=== PATIENT | female | born 1955 | race Two or more races ===

== ENCOUNTER 2024-08-14 11:05 | Day surgery (SDC) | payer MEDICARE, MEDICAID, SELFPAY ==
[2024-08-11 14:03] VITALS: BMI 31.2
[2024-08-14] VITALS (7 sets, daily range): BP systolic 118–151; BP diastolic 74–94; PULSE 64–68; RESP 10–18; TEMP 36.3–36.6; O2SAT 97–100; BMI 32.4
[2024-08-14] MEDS: SODIUM CHLORIDE 0.9% 500 ML 500 ML 20 ML IV (12:38)
[2024-08-14] MEDS: MIDAZOLAM INJ 1 MG/ML VIAL 2 ML (ASD USE ONLY) 2 MG IV (12:38)
[2024-08-14] MEDS: DiphenhydrAMINE INJ 50 MG/ML VIAL 25 MG IV (12:38)
[2024-08-14] MEDS: fentaNYL CIT INJ 50 mCg/ML AMP 2ML (ASD USE ONLY) IV (12:38)
== END 2024-08-14 13:17 | disposition home or self-care (01) ==
PROVIDERS: PCP Nurse Practitioner Family; Referring Provider Specialist; Visit Provider Specialist
PROC: (CPT 43239; principal; 2024-08-14 11:15)
DX: K29.71 Gastritis, unspecified, with bleeding (principal); K76.6 Portal hypertension; I85.11 Secondary esophageal varices with bleeding
CPT/HCPCS: 43235; J1200; J2250; J3010; J7040

== ENCOUNTER → 2024-09-18 | Outpatient (CLI) | payer MEDICARE, MEDICAID, SELFPAY ==
--- NOTE | 2024-09-18 09:45 | XR_ITS ---
Examination: Screening digital mammography, bilateral Computer aided detection 3-D breast Tomosynthesis, bilateral Date and time of exam: September 18, 2024 0939 hours Comparison made to mammograms dating to February 09, 2019 Indication: Screening Technique: Nonmagnified MLO, CC views of the breasts to been obtained, reconstructed from 3-D Tomosynthesis images. R2 computer aided detection program utilized for evaluation of suspicious masses and/or abnormal calcifications. 3-D Tomosynthesis images obtained. Findings: Scattered areas of fibroglandular density Benign calcifications. No interval suspicious masses Impression: BI-RADS category II: Benign Findings. Recommend 1 year follow-up mammogram.
== END | disposition home or self-care (01) ==
LOC: CDIM 09:29
PROVIDERS: Referring Provider Nurse Practitioner Family; Visit Provider Nurse Practitioner Family
DX: Z12.31 Encounter for screening mammogram for malignant neoplasm of breast (principal); R92.323 Mammographic fibroglandular density, bilateral breasts; R92.1 Mammographic calcification found on diagnostic imaging of breast
CPT/HCPCS: 77063; 77067

== ENCOUNTER → 2025-03-08 | Outpatient (CLI) | payer MEDICARE, MEDICAID, SELFPAY ==
--- NOTE | 2025-03-08 08:45 | XR_ITS ---
Examination: Abdomen sonogram, Limited Date and time of exam: March 08, 2025, 0916 hours INDICATIONS: Diagnosis cirrhosis, years Technique: Real-time de leon scale transabdominal sonographic images of the upper abdomen obtained. Findings: Multiple gallstones Normal gallbladder wall Common bile duct 0.4 cm Pancreatic head 2.2 cm Liver 13.3 cm fatty infiltration and irregular contour Normal hepatopetal portal venous flow Patent IVC IMPRESSION: Cholelithiasis, negative for cholecystitis Cirrhosis, no focal liver lesions
[2025-03-08 10:25] LABS: Basophils # (Auto) 0.0 Thou/mm3 (0.0-0.2); Basophils % (Auto) 1 % (0-2.5); Eosinophils # (Auto) 0.3 Thou/mm3 (0.0-0.5); Eosinophils % (Auto) 5 % (0-10); Hematocrit 40.7 % (36.0-46.0); Hemoglobin 14.0 g/dL (12.0-16.0); Immature Granulocytes Auto 0.02 Thou/mm3 (0.00-0.00); Lymphocytes # (Auto) 1.6 Thou/mm3 (1.0-4.8); Lymphocytes % (Auto) 30 % (10-50); Mean Corpuscular HGB Conc 34.4 g/dl (31.0-37.0); Mean Corpuscular Hemoglobin 34.9 pg (25.0-35.0); Mean Corpuscular Volume 102 fL (80-100); Monocytes # (Auto) 0.4 Thou/mm3 (0.0-0.8); Monocytes % (Auto) 7 % (0-12); Neutrophils # (Auto) 3.0 Thou/mm3 (1.8-7.7); Neutrophils % (Auto) 57 % (37-80); Nucleated Red Blood Cell # 0.00 Thou/mm3 (0.00-0.00); Nucleated Red Blood Cell % 0 /100 WBC (0); Platelet Count 221 Thou/mm3 (140-440); RDW Standard Deviation 45.6 fL (36.4-46.3); Red Blood Count 4.01 Miln/mm3 (4.00-5.20); White Blood Count 5.3 Thou/mm3 (3.6-11.0)
[2025-03-08 10:40] LABS: AFP Non-Pregnant 6.30 ng/mL (<8.10); Alanine Aminotransferase 13 U/L (10-49); Albumin, Serum 4.5 gm/dL (3.4-4.8); Albumin/Globulin Ratio 1.7 (1.2-2.2); Alkaline Phosphatase 132 U/L (46-116); Anion Gap 10 (7-16); Aspartate Amino Transferase 33 U/L (0-34); BUN/Creatinine Ratio 8 Ratio (12-20); Bilirubin,Total 0.8 mg/dL (0.3-1.2); Blood Urea Nitrogen 6 mg/dL (9-23); Calcium 9.7 mg/dL (8.3-10.6); Calcium (Corrected) 9.7 mg/dL (8.5-10.1); Carbon Dioxide 29.5 mMol/L (20.0-31.0); Chloride 102 mMol/L (98-107); Creatinine (Component) 0.8 mg/dL (0.6-1.3); Globulin 2.6 gm/dL (2.3-3.5); Glucose 103 mg/dL (74-106); Osmolality,Calculated 278 (275-295); Potassium 4.6 mMol/L (3.4-5.1); Sodium 141 mMol/L (136-145); Total Protein 7.1 gm/dL (5.7-8.2); eGFR > 60 See Note
== END | disposition home or self-care (01) ==
LOC: CDIM 09:06 → COPL 09:40
PROVIDERS: PCP Specialist; Referring Provider Specialist; Visit Provider Radiology Diagnostic Radiology
DX: K80.20 Calculus of gallbladder without cholecystitis without obstruction (principal); K74.60 Unspecified cirrhosis of liver; K76.6 Portal hypertension; R14.0 Abdominal distension (gaseous)
CPT/HCPCS: 36415; 76705; 80053; 82105; 85025

== ENCOUNTER 2025-03-29 08:56 | Outpatient (AMB) | payer MEDICARE, MEDICAID, SELFPAY ==
[2025-03-29 09:17] VITALS: BP 146/87; PULSE 86; RESP 18; TEMP 36.6; O2SAT 96; BMI 33.0
--- NOTE | 2025-03-29 09:17 | PD.ORTHCLVIS ---
Vital signs 03/29/25 09:17 Height 1.52 m Height Method Measured Weight 76.232 kg Weight Measurement Method Standing Scale BMI 33.0 BP 146/87 H Blood Pressure Source Automatic Cuff Blood Pressure Location Left Upper Arm Position Sitting Respiration 18 Pulse 86 Pulse Source Monitor Temp 97.8 F Temp Source Temporal Artery Scan Pulse Oximetry (%) 96 Oxygen Delivery Method Room Air Med/Allergies Allergies & Medications Allergies codeine Allergy (Intermediate, Verified 04/05/25 11:39) Hives Medication Reconciliation fluticasone propionate 50 mcg/actuation nasal spray,suspension 1 spray intranasal QDAY 05/20/22 [History Confirmed 04/05/25] loratadine 10 mg tablet 10 mg PO QDAY 05/20/22 [History Confirmed 04/05/25] propranolol 10 mg tablet 10 mg PO BID 05/20/22 [History Confirmed 04/05/25] spironolactone 50 mg tablet 50 mg PO QDAY 05/20/22 [History Confirmed 04/05/25] albuterol sulfate 90 mcg/actuation aerosol inhaler 2 puff inhalation Q4H PRN Shortness Of Breath Or Wheezing 06/02/22 [History Confirmed 04/05/25] pantoprazole 40 mg tablet,delayed release 40 mg PO QDAY 09/29/23 [History Confirmed 04/05/25] metformin 500 mg tablet 500 mg PO QDAY 08/14/24 [History Confirmed 04/05/25] Exam Exam Patient is in no acute distress and is cooperative with the examination today. Breathing is nonlabored. In no respiratory distress. Bilateral extremities were evaluated and demonstrates sensation intact to light touch. Palpable pedal pulses are present. No significant edema is present. Bilateral hips were examined. The patient has no pain with log roll of the hips. Internal rotation to 30 degrees and external rotation to 30 degrees is painless. Negative FADIR. The left knee was examined. The left knee is in varus alignment. Range of motion from 0-115 degrees. Knee is stable to varus and valgus as well as AP translation with <5mm. Patient has a negative McMurrays. There is no pain with patellofemoral compression and no crepitus noted. The knee is tender to palpation medially. The right knee was also examined. The right knee is in varus alignment. Range of motion from 0-120 degrees. Knee is stable to varus and valgus as well as AP translation with <5mm. Patient has a negative McMurrays. There is no pain with patellofemoral compression and no crepitus noted. The knee is tender to palpation diffusely and particularly anteriorly. The right knee demonstrates an effusion and swelling. X-rays of the right knee demonstrates a vertical nondisplaced patella fracture. This is from 01/11/2025 Assessment and Plan Problem List (1) Right patella fracture: Status: Acute Plan: Patient is a 69-year-old female with a right knee patella fracture that is nondisplaced. She is immobilized for 6 weeks. Her range of motion is okay. I would like to get x-rays to better evaluate her fracture healing as well as arthritis. She has known bilateral knee arthritis and has not had significant surgery for this (2) Bilateral primary osteoarthritis of knee: Status: Acute Advanced Care Planning Discussion Advance care planning discussed with:: patient Office Procedures GNS Level of Care Nursing/Assessment Patient Status: Initial/New Patient Nursing Assessment/Reassesment: Medication Reconciliation, Update PMH in EMR and Vital Signs Coordination of Care: Complex Care and Chronic Disease 1-5, Education Complex Pt/Fam, Consent,records obtained, informed consent, Lab and Imaging orders, Results/Orders obtained and Staff clarify orders New Patient Charge New Patient Point Assignment: 1109 New Patient Point Charge: SALES DEVELOPMENT DIRECTOR Level 3 ([id number]) MA Intake Visit Data Collection New Patient or Established: New Patient (never been to [facility]) Reason for Visit:: RIGHT PATELLA FRACTURE Seen by Clinical Staff ONLY (RN/MA): No Block Sorter Required: No PCP or OBGYN visit in last 3 months: Yes Hx Now: No Do You Feel Safe at Home: Yes Authorities Contacted: N/A Questionairres Past Medical History Past Medical History Have you ever been diagnosed with any of the following: Neurological Problems Cerebrovascular Accident (CVA): No Transient Ischemic Attacks (TIA): No Dementia: No Alzheimer's Disease: No Parkinson's Disease: No Brain Tumor: No Meningitis: No Seizures: Yes Epilepsy: No Multiple Sclerosis: No Cerebral Palsy: No Amyotrophic Lateral Sclerosis (ALS/Amna Gehrig's): No Guillain-Amelia Syndrome: No Spina Bifida: No Paralysis: No Peripheral Neuropathy: No Zuniga's Palsy: No Subdural Hematoma: No Migraine: No Head Trauma: No Spinal Cord Injury: No Traumatic Brain Injury: No Cardiology Problems Myocardial Infarction: No Cardiac Arrhythmia: No Atrial Fibrillation: No Angina: No Heart Murmur: No Coronary Artery Disease: No Atherosclerotic Heart Disease: No Peripheral Vascular Disease: No Hypercholesterolemia: No Aneurysm: No Congestive Heart Failure: No Congenital Heart Disease: No Valvular Heart Disease: No Rheumatic Fever: No Cardiomyopathy: No Edema: No Pericarditis: No Cellulitis: No Deep Vein Thrombosis: No Hypertension: Yes Hypotension: No Varicose Veins: No Respiratory Problems Chronic Obstructive Pulmonary Disease (COPD): No Asthma: No Bronchitis: No Emphysema: No Pneumonia: No Pulmonary Fibrosis: No Tuberculosis: No Pulmonary Embolism: No Pulmonary Edema: No Sleep Apnea: No CPAP Dependent: No Respiratory Aspiration: No Dyspnea: No Orthopnea: No Hx Cough: No Cough: No Wheezing: No Chest Deformities: No Smoking: No Smoking Cessation Counseling: No Smoking Exposure: No Tobacco Use: No Clubbing: No Exposure to Respiratory Irritants: No Intubation: No Stomache/Intestinal Problems Liver Cancer: No Hepatitis: No Cirrhosis: Yes Pancreatic Cancer: No Pancreatitis: No Celiac Disease: No Gall Bladder Disease: No Gastrointestinal Bleed: No Esophageal Varices: No Evans's Esophagus: No Colitis: No Ulcerative Colitis: No Diverticulitis: No Diverticulosis: No Ulcer: Yes Colorectal Cancer: No Irritable Bowel: No Crohn's Disease: No Obstructive Bowel: No Hiatal Hernia: No Hemorrhoids: No Gastroesophageal Reflux Disease: Yes Polyps: No Obesity: No Genital/Urinary Problems Chronic Kidney Disease: No Renal Disease: No Kidney Stones: No Polycystic Kidney Disease: No Neurogenic Bladder: No Inguinal Hernia: No Dialysis: No Reproductive Problems Breast Cancer: No Endometriosis: No Fibroids: No Genital Herpes: No Gonorrhea: No Pelvic Inflammatory Disease: No Polycystic Ovarian Syndrome: No Previous Pregnancies: Yes (G2) Syphilis: No Uterine Prolapse: No Musculoskeletal Problems Muscular Dystrophy: No Myasthenia Gravis: No Marfan's Syndrome: No Bone Cancer: No Arthritis: No Rheumatoid Arthritis: No Osteoporosis: No Degenerative Disk Disease: No Gout: No Scoliosis: No Carpal Tunnel Syndrome: No Fibromyalgia: No Fractures: No Degenerative Joint Disease: No Osteomyelitis: No Poliovirus: No Head,Eye,Nose,Throat Problems Cataracts: Yes Glaucoma: No Blind: No Retinal Detachment: No Macular Degeneration: No Chronic Ear Infections: No Deafness: No Eye Prosthesis: No Endocrine Problems Diabetes Mellitus Type 1: No Diabetes Mellitus Type 2: Yes Hypoglycemia: No Vane's Syndrome: No [place]'s Disease: No Hyperthyroidism: No Hypothyroidism: No Thyroid Cancer: No Parathyroid Disease: No Pituitary Disease: No Systemic Lupus Erythematosus: No Syndrome of Inappropriate Antidiuretic Hormone: No Adrenal Disease: No Graves' Disease: No Blood Problems Anemia: No Leukemia: No Hemophilia: No Thalassemia: No Sickle Cell Disease: No Clotting Problems: No Psychologic Problems Schizophrenia: No Recreational Drug Use: No Bipolar Disorder: No Depression: No Anxiety: No Behavior Problems: No Self-Mutilation: No Attention Deficit Disorder: No Attention Deficit Hyperactivity Disorder: No Depression: No Post Traumatic Stress Disorder: No Eating Disorder: No Other Problems Hospitalization: No Autoimmune Disease: No Down Syndrome: No Autism: No Developmental Delay: No Cosmetic Surgery: No Shingles: No Falls: No Blood Transfusions: No Blood Transfusion Reaction: No Anesthesia Reactions: No Organ Transplant: No Chemotherapy: No Radiation Therapy: No Hyperbaric Therapy: No MRSA: No VRSA: No Vancomycin-Resistant Enterococci: No Human Immunodeficiency Virus (HIV): No Chicken Pox: Yes Measles: Yes Mumps: No Rubella (Sinhala Measles): No Pertussis: No Klebsiella Pneumoniae Carbapenemase Producing Bacteria: No Clostridium Difficile: No Hepatitis A: No Hepatitis B: No Hepatitis C: No Communicable Disease: No Cancer: No Cervical Cancer: No Lung Cancer: No Ovarian Cancer: No Surgical History Angioplasty: No Appendectomy: No Bariatric Surgery: No Breast Surgery: No Cancer Surgery: No Carotid Endarterectomy: No Cholecystectomy: No Colectomy: No Colostomy: No Coronary Artery Bypass Graft: No Valve Replacement: No Herniorrhaphy: No Total Hip Replacement: No Total Knee Replacement: No Hysterectomy: Yes (partial hyst) Pacemaker: No Sinus Surgery: No Splenectomy: No TAHBSO-Total Abdominal Hysterectomy: No Thyroidectomy: No Ureter Stent: No Subjective Visit Visit for: new patient and knee Immunization / Flu Flu Vaccine in the Last 12 Months: No Flu Vaccine Exclusion Criteria: No Exclusion Criteria History of Present Illness Chief complaint: RIGHT PATELLA FRACTURE Date of injury / onset of symptoms: 01/11/2025 HISTORY OF PRESENT ILLNESS IMundo, have obtained verbal consent from the patient, to be recorded during this encounter which may include, but not limited to, medical history, examination, treatment plans, and relevant health information.? Patient was informed that recording will be read and reviewed by myself before inclusion in the medical chart. The patient is a 69-year-old female who presents today with pain in the right knee. She fractured her patella on 01/11/2025. The patient's most recent x-rays were done here at [place], [facility]. She is allergic to codeine. She has not had injections, has not had physical therapy, and states she cannot take anti-inflammatory medications due to cirrhosis. She reports experiencing knee pain prior to the fall, which was attributed to [id number] arthritis. Following an MRI, she was referred to physical therapy but did not seek further medical attention. An x-ray was performed in 12/2024. After the fall, she sought emergency care and was provided with a knee immobilizer, which she wore for a duration of 6 weeks. She has been without the brace for approximately 4 weeks. The pain has slightly improved but persists, particularly when she attempts to move or perform certain activities, resulting in sharp pain. Both knees exhibit swelling, which is more pronounced in the morning. Personal History Occupation: RETIRED Red flag PMH: none BMI Counceling provided: Yes Pain Pain level (0-10): 6 Pain location: inside (medial), outside (lateral), anterior and posterior Pain quality: sharp Pain timing: increases with activity Associated signs & symptoms: none Ambulatory data Ambulatory device: none Treatments Number of previous injections: 0 Improvement with previous injections: No Number of Physical Therapy sessions: 0 Improvement with PT: No Improvement with NSAIDS: no (CIRRHOSIS CANNOT TAKE NSAIDS) Review of Systems Review of Systems: All systems negative unless otherwise noted in HPI.
--- NOTE | 2025-03-29 09:21 | XR_ITS ---
EXAMINATION: Bilateral knees 2 views Right lateral knee left lateral knee 2 views Bilateral Axuni single view TECHNIQUE: Bilateral AP knees single view standing, bilateral PA knees standing single view flexion Standing right lateral knee left lateral knee 2 views Bilateral Axuni single view total 5 views Date and time: March 29, 2025, 0930 hours INDICATIONS: Bilateral knee pain after falling 3 months ago. FINDINGS: Moderate osteopenia Bilateral severe narrowing medial joint spaces Bilateral moderate osteoarthritis patellofemoral joints No fractures Bilateral small knee effusions IMPRESSION: No fractures Bilateral severe narrowing medial joint spaces
== END 2025-03-29 09:26 | disposition home or self-care (01) ==
LOC: HODSRG 08:56
PROVIDERS: PCP Nurse Practitioner Family; Referring Provider Nurse Practitioner Family; Supervising Provider Orthopaedic Surgery Adult Reconstructive Orthopaedic Surgery; Visit Provider Orthopaedic Surgery Adult Reconstructive Orthopaedic Surgery
DX: M25.561 Pain in right knee (principal); M17.0 Bilateral primary osteoarthritis of knee; I10 Essential (primary) hypertension; E11.9 Type 2 diabetes mellitus without complications; Z79.84 Long term (current) use of oral hypoglycemic drugs
CPT/HCPCS: 73564; 99203; G0463

== ENCOUNTER 2025-04-05 10:43 | Outpatient (AMB) | payer MEDICARE, MEDICAID, SELFPAY ==
--- NOTE | 2025-04-05 11:32 | PD.ORTHCLVIS ---
Vital signs 04/05/25 11:38 Height 1.52 m Height Method Measured Weight 75.551 kg Weight Measurement Method Standing Scale BMI 32.7 BP 119/81 Blood Pressure Source Automatic Cuff Blood Pressure Location Left Upper Arm Position Sitting Respiration 18 Pulse 76 Pulse Source Monitor Temp 97.2 F Temp Source Temporal Artery Scan Pulse Oximetry (%) 96 Oxygen Delivery Method Room Air Med/Allergies Allergies & Medications Allergies codeine Allergy (Intermediate, Verified 04/05/25 11:39) Hives Medication Reconciliation fluticasone propionate 50 mcg/actuation nasal spray,suspension 1 spray intranasal QDAY 05/20/22 [History Confirmed 04/05/25] loratadine 10 mg tablet 10 mg PO QDAY 05/20/22 [History Confirmed 04/05/25] propranolol 10 mg tablet 10 mg PO BID 05/20/22 [History Confirmed 04/05/25] spironolactone 50 mg tablet 50 mg PO QDAY 05/20/22 [History Confirmed 04/05/25] albuterol sulfate 90 mcg/actuation aerosol inhaler 2 puff inhalation Q4H PRN Shortness Of Breath Or Wheezing 06/02/22 [History Confirmed 04/05/25] pantoprazole 40 mg tablet,delayed release 40 mg PO QDAY 09/29/23 [History Confirmed 04/05/25] metformin 500 mg tablet 500 mg PO QDAY 08/14/24 [History Confirmed 04/05/25] Exam Exam Patient is in no acute distress and is cooperative with the examination today. Breathing is nonlabored. In no respiratory distress. Bilateral extremities were evaluated and demonstrates sensation intact to light touch. Palpable pedal pulses are present. No significant edema is present. Bilateral hips were examined. The patient has no pain with log roll of the hips. Internal rotation to 30 degrees and external rotation to 30 degrees is painless. Negative FADIR. The left knee was examined. The left knee is in varus alignment. Range of motion from 0-115 degrees. Knee is stable to varus and valgus as well as AP translation with <5mm. Patient has a negative McMurrays. There is no pain with patellofemoral compression and no crepitus noted. The knee is tender to palpation medially. The right knee was also examined. The right knee is in varus alignment. Range of motion from 0-120 degrees. Knee is stable to varus and valgus as well as AP translation with <5mm. Patient has a negative McMurrays. There is no pain with patellofemoral compression and no crepitus noted. The knee is tender to palpation diffusely and particularly anteriorly. The right knee demonstrates an effusion and swelling. X-rays of the right knee demonstrates a vertical fracture line that can still be seen. It is nondisplaced. X-rays demonstrate complete joint space loss medially with complete obliteration of the joint space and osteophytes Assessment and Plan Problem List (1) Bilateral primary osteoarthritis of knee: Status: Acute (2) Right patella fracture: Status: Acute Plan: Patient is a 69-year-old female with a medical nondisplaced patella fracture. She has an intact extensor mechanism and great range of motion. She never started formal physical therapy but has no stiffness. We discussed different treatment options for her bilateral knee pain. We discussed anti-inflammatories, injections, and physical therapy. She would like to try bilateral knee injections as she cannot take NSAIDs due to a contraindication for her liver. Recommend knee cortisone injection as patient would like to proceed with conservative treatment at this time. The risks and benefits of the procedure were reviewed with the patient and patient gave verbal consent to continue with the procedure. Procedure: performed by Dr. Giron Using sterile technique the Right knee was thoroughly prepped with alcohol, and approximately 1 cc of Depo-Medrol 80mg/mL and 4 cc of 0.2% ropivacaine was injected without resistance into the medial tibial femoral joint space. The patient tolerated the procedure. Recommend knee cortisone injection as patient would like to proceed with conservative treatment at this time. The risks and benefits of the procedure were reviewed with the patient and patient gave verbal consent to continue with the procedure. Procedure: performed by Dr. Giron Using sterile technique the leftknee was thoroughly prepped with alcohol, and approximately 1 cc of Depo-Medrol 80mg/mL and 4 cc of 0.2% ropivacaine was injected without resistance into the medial tibial femoral joint space. The patient tolerated the procedure. Advanced Care Planning Discussion Advance care planning discussed with:: patient Office Procedures GNS Level of Care Nursing/Assessment Patient Status: Established Patient Nursing Assessment/Reassesment: Medication Reconciliation, Update PMH in EMR and Vital Signs Coordination of Care: Complex Care and Chronic Disease 1-5, Education Complex Pt/Fam, Consent,records obtained, informed consent, Results/Orders obtained and Staff clarify orders Established Patient Charge Established Patient Point Assignment: 95 Established Patient Point Charge: EP Level 3 (80-115) Surgical Proc/IM SQ injection Minor Surgical Procedure: Yes (KNEE INJECTION) Questionairres Past Medical History Past Medical History Have you ever been diagnosed with any of the following: Neurological Problems Cerebrovascular Accident (CVA): No Transient Ischemic Attacks (TIA): No Dementia: No Alzheimer's Disease: No Parkinson's Disease: No Brain Tumor: No Meningitis: No Seizures: Yes Epilepsy: No Multiple Sclerosis: No Cerebral Palsy: No Amyotrophic Lateral Sclerosis (ALS/Amna Gehrig's): No Guillain-[place] Syndrome: No Spina Bifida: No Paralysis: No Peripheral Neuropathy: No Zuniga's Palsy: No Subdural Hematoma: No Migraine: No Head Trauma: No Spinal Cord Injury: No Traumatic Brain Injury: No Cardiology Problems Myocardial Infarction: No Cardiac Arrhythmia: No Atrial Fibrillation: No Angina: No Heart Murmur: No Coronary Artery Disease: No Atherosclerotic Heart Disease: No Peripheral Vascular Disease: No Hypercholesterolemia: No Aneurysm: No Congestive Heart Failure: No Congenital Heart Disease: No Valvular Heart Disease: No Rheumatic Fever: No Cardiomyopathy: No Edema: No Pericarditis: No Cellulitis: No Deep Vein Thrombosis: No Hypertension: Yes Hypotension: No Varicose Veins: No Respiratory Problems Chronic Obstructive Pulmonary Disease (COPD): No Asthma: No Bronchitis: No Emphysema: No Pneumonia: No Pulmonary Fibrosis: No Tuberculosis: No Pulmonary Embolism: No Pulmonary Edema: No Sleep Apnea: No CPAP Dependent: No Respiratory Aspiration: No Dyspnea: No Orthopnea: No Hx Cough: No Cough: No Wheezing: No Chest Deformities: No Smoking: No Smoking Cessation Counseling: No Smoking Exposure: No Tobacco Use: No Clubbing: No Exposure to Respiratory Irritants: No Intubation: No Stomache/Intestinal Problems Liver Cancer: No Hepatitis: No Cirrhosis: Yes Pancreatic Cancer: No Pancreatitis: No Celiac Disease: No Gall Bladder Disease: No Gastrointestinal Bleed: No Esophageal Varices: No Evans's Esophagus: No Colitis: No Ulcerative Colitis: No Diverticulitis: No Diverticulosis: No Ulcer: Yes Colorectal Cancer: No Irritable Bowel: No Crohn's Disease: No Obstructive Bowel: No Hiatal Hernia: No Hemorrhoids: No Gastroesophageal Reflux Disease: Yes Obesity: No Genital/Urinary Problems Renal Disease: No Kidney Stones: No Polycystic Kidney Disease: No Neurogenic Bladder: No Inguinal Hernia: No Dialysis: No Reproductive Problems Breast Cancer: No Endometriosis: No Fibroids: No Genital Herpes: No Gonorrhea: No Pelvic Inflammatory Disease: No Polycystic Ovarian Syndrome: No Previous Pregnancies: Yes (G2) Syphilis: No Uterine Prolapse: No Musculoskeletal Problems Muscular Dystrophy: No Myasthenia Gravis: No Marfan's Syndrome: No Bone Cancer: No Arthritis: No Rheumatoid Arthritis: No Osteoporosis: No Degenerative Disk Disease: No Gout: No Scoliosis: No Carpal Tunnel Syndrome: No Fibromyalgia: No Fractures: No Degenerative Joint Disease: No Osteomyelitis: No Poliovirus: No Head,Eye,Nose,Throat Problems Cataracts: Yes Glaucoma: No Blind: No Retinal Detachment: No Macular Degeneration: No Chronic Ear Infections: No Deafness: No Eye Prosthesis: No Endocrine Problems Diabetes Mellitus Type 1: No Diabetes Mellitus Type 2: Yes Hypoglycemia: No Vane's Syndrome: No [place]'s Disease: No Hyperthyroidism: No Hypothyroidism: No Thyroid Cancer: No Parathyroid Disease: No Pituitary Disease: No Systemic Lupus Erythematosus: No Syndrome of Inappropriate Antidiuretic Hormone: No Adrenal Disease: No Graves' Disease: No Blood Problems Anemia: No Leukemia: No Hemophilia: No Thalassemia: No Sickle Cell Disease: No Clotting Problems: No Psychologic Problems Schizophrenia: No Recreational Drug Use: No Bipolar Disorder: No Depression: No Anxiety: No Behavior Problems: No Self-Mutilation: No Attention Deficit Disorder: No Attention Deficit Hyperactivity Disorder: No Depression: No Post Traumatic Stress Disorder: No Eating Disorder: No Other Problems Hospitalization: No Down Syndrome: No Autism: No Developmental Delay: No Cosmetic Surgery: No Shingles: No Falls: No Blood Transfusions: No Blood Transfusion Reaction: No Anesthesia Reactions: No Organ Transplant: No Chemotherapy: No Radiation Therapy: No Hyperbaric Therapy: No MRSA: No VRSA: No Vancomycin-Resistant Enterococci: No Human Immunodeficiency Virus (HIV): No Chicken Pox: Yes Measles: Yes Mumps: No Rubella (Romansh Measles): No Pertussis: No Klebsiella Pneumoniae Carbapenemase Producing Bacteria: No Clostridium Difficile: No Hepatitis A: No Hepatitis B: No Hepatitis C: No Communicable Disease: No Cancer: No Cervical Cancer: No Lung Cancer: No Ovarian Cancer: No Surgical History Angioplasty: No Appendectomy: No Bariatric Surgery: No Breast Surgery: No Cancer Surgery: No Carotid Endarterectomy: No Cholecystectomy: No Colectomy: No Colostomy: No Coronary Artery Bypass Graft: No Valve Replacement: No Herniorrhaphy: No Total Hip Replacement: No Total Knee Replacement: No Hysterectomy: Yes (partial hyst) Pacemaker: No Sinus Surgery: No Splenectomy: No TAHBSO-Total Abdominal Hysterectomy: No Thyroidectomy: No Ureter Stent: No Subjective Visit Visit for: new patient and knee Immunization / Flu Flu Vaccine in the Last 12 Months: No Flu Vaccine Exclusion Criteria: No Exclusion Criteria History of Present Illness Chief complaint: RIGHT PATELLA FRACTURE Date of injury / onset of symptoms: 01/11/2025 HISTORY OF PRESENT ILLNESS I, Mundo Giron, have obtained verbal consent from the patient, to be recorded during this encounter which may include, but not limited to, medical history, examination, treatment plans, and relevant health information.? Patient was informed that recording will be read and reviewed by myself before inclusion in the medical chart. The patient is a 69-year-old female who presents today with pain in the right knee. She fractured her patella on 01/11/2025. The patient's most recent x-rays were done here at [place], [facility]. She is allergic to codeine. She has not had injections, has not had physical therapy, and states she cannot take anti-inflammatory medications due to cirrhosis. She reports experiencing knee pain prior to the fall, which was attributed to [id number] arthritis. She has been almost 3 months since the patella fracture. She has intact extensor mechanism and some tenderness to palpation. On x-ray it demonstrates a fibrous nonunion. She has medial knee pain on both knees which she did preop as well. Personal History Occupation: RETIRED Red flag PMH: none BMI Counceling provided: Yes Pain Pain level (0-10): 6 Pain location: inside (medial), outside (lateral), anterior and posterior Pain quality: sharp Pain timing: increases with activity Associated signs & symptoms: none Ambulatory data Ambulatory device: none Treatments Number of previous injections: 0 Improvement with previous injections: No Number of Physical Therapy sessions: 0 Improvement with PT: No Improvement with NSAIDS: no (CIRRHOSIS CANNOT TAKE NSAIDS) Review of Systems Review of Systems: All systems negative unless otherwise noted in HPI.
[2025-04-05 11:38] VITALS: BP 119/81; PULSE 76; RESP 18; TEMP 36.2; O2SAT 96; BMI 32.7
--- NOTE | 2025-04-05 11:38 | PD.ORTHCLVIS ---
Vital signs 04/05/25 11:38 Height 1.52 m Height Method Measured Weight 75.551 kg Weight Measurement Method Standing Scale BMI 32.7 BP 119/81 Blood Pressure Source Automatic Cuff Blood Pressure Location Left Upper Arm Position Sitting Respiration 18 Pulse 76 Pulse Source Monitor Temp 97.2 F Temp Source Temporal Artery Scan Pulse Oximetry (%) 96 Oxygen Delivery Method Room Air Med/Allergies Allergies & Medications Allergies codeine Allergy (Intermediate, Verified 04/05/25 11:39) Hives Medication Reconciliation fluticasone propionate 50 mcg/actuation nasal spray,suspension 1 spray intranasal QDAY 05/20/22 [History Confirmed 04/05/25] loratadine 10 mg tablet 10 mg PO QDAY 05/20/22 [History Confirmed 04/05/25] propranolol 10 mg tablet 10 mg PO BID 05/20/22 [History Confirmed 04/05/25] spironolactone 50 mg tablet 50 mg PO QDAY 05/20/22 [History Confirmed 04/05/25] albuterol sulfate 90 mcg/actuation aerosol inhaler 2 puff inhalation Q4H PRN Shortness Of Breath Or Wheezing 06/02/22 [History Confirmed 04/05/25] pantoprazole 40 mg tablet,delayed release 40 mg PO QDAY 09/29/23 [History Confirmed 04/05/25] metformin 500 mg tablet 500 mg PO QDAY 08/14/24 [History Confirmed 04/05/25] Assessment and Plan Problem List (1) Bilateral primary osteoarthritis of knee: Status: Acute (2) Right patella fracture: Status: Acute Advanced Care Planning Discussion Advance care planning discussed with:: patient Office Procedures GNS Level of Care Nursing/Assessment Patient Status: Established Patient Nursing Assessment/Reassesment: Medication Reconciliation, Update PMH in EMR and Vital Signs Coordination of Care: Complex Care and Chronic Disease 1-5, Education Complex Pt/Fam, Consent,records obtained, informed consent, Results/Orders obtained and Staff clarify orders Established Patient Charge Established Patient Point Assignment: 95 Established Patient Point Charge: EP Level 3 (80-115) Surgical Proc/IM SQ injection Minor Surgical Procedure: Yes (KNEE INJECTION) MA Intake Visit Data Collection New Patient or Established: Established Patient (seen at [facility] within 3 years) Reason for Visit:: XRAY RESULTS Hat Cleaner Required: No PCP or OBGYN visit in last 3 months: Yes Hx Now: No Do You Feel Safe at Home: Yes Authorities Contacted: N/A Questionairres Past Medical History Past Medical History Have you ever been diagnosed with any of the following: Neurological Problems Cerebrovascular Accident (CVA): No Transient Ischemic Attacks (TIA): No Dementia: No Alzheimer's Disease: No Parkinson's Disease: No Brain Tumor: No Meningitis: No Seizures: Yes Epilepsy: No Multiple Sclerosis: No Cerebral Palsy: No Amyotrophic Lateral Sclerosis (ALS/Amna Gehrig's): No Guillain-[place] Syndrome: No Spina Bifida: No Paralysis: No Peripheral Neuropathy: No Zuniga's Palsy: No Subdural Hematoma: No Migraine: No Head Trauma: No Spinal Cord Injury: No Traumatic Brain Injury: No Cardiology Problems Myocardial Infarction: No Cardiac Arrhythmia: No Atrial Fibrillation: No Angina: No Heart Murmur: No Coronary Artery Disease: No Atherosclerotic Heart Disease: No Peripheral Vascular Disease: No Hypercholesterolemia: No Aneurysm: No Congestive Heart Failure: No Congenital Heart Disease: No Valvular Heart Disease: No Rheumatic Fever: No Cardiomyopathy: No Edema: No Pericarditis: No Cellulitis: No Deep Vein Thrombosis: No Hypertension: Yes Hypotension: No Varicose Veins: No Respiratory Problems Chronic Obstructive Pulmonary Disease (COPD): No Asthma: No Bronchitis: No Emphysema: No Pneumonia: No Pulmonary Fibrosis: No Tuberculosis: No Pulmonary Embolism: No Pulmonary Edema: No Sleep Apnea: No CPAP Dependent: No Respiratory Aspiration: No Dyspnea: No Orthopnea: No Hx Cough: No Cough: No Wheezing: No Chest Deformities: No Smoking: No Smoking Cessation Counseling: No Smoking Exposure: No Tobacco Use: No Clubbing: No Exposure to Respiratory Irritants: No Intubation: No Stomache/Intestinal Problems Liver Cancer: No Hepatitis: No Cirrhosis: Yes Pancreatic Cancer: No Pancreatitis: No Celiac Disease: No Gall Bladder Disease: No Gastrointestinal Bleed: No Esophageal Varices: No Evans's Esophagus: No Colitis: No Ulcerative Colitis: No Diverticulitis: No Diverticulosis: No Ulcer: Yes Colorectal Cancer: No Irritable Bowel: No Crohn's Disease: No Obstructive Bowel: No Hiatal Hernia: No Hemorrhoids: No Gastroesophageal Reflux Disease: Yes Obesity: No Genital/Urinary Problems Renal Disease: No Kidney Stones: No Polycystic Kidney Disease: No Neurogenic Bladder: No Inguinal Hernia: No Dialysis: No Reproductive Problems Breast Cancer: No Endometriosis: No Fibroids: No Genital Herpes: No Gonorrhea: No Pelvic Inflammatory Disease: No Polycystic Ovarian Syndrome: No Previous Pregnancies: Yes (G2) Syphilis: No Uterine Prolapse: No Musculoskeletal Problems Muscular Dystrophy: No Myasthenia Gravis: No Marfan's Syndrome: No Bone Cancer: No Arthritis: No Rheumatoid Arthritis: No Osteoporosis: No Degenerative Disk Disease: No Gout: No Scoliosis: No Carpal Tunnel Syndrome: No Fibromyalgia: No Fractures: No Degenerative Joint Disease: No Osteomyelitis: No Poliovirus: No Head,Eye,Nose,Throat Problems Cataracts: Yes Glaucoma: No Blind: No Retinal Detachment: No Macular Degeneration: No Chronic Ear Infections: No Deafness: No Eye Prosthesis: No Endocrine Problems Diabetes Mellitus Type 1: No Diabetes Mellitus Type 2: Yes Hypoglycemia: No [place]'s Syndrome: No [place]'s Disease: No Hyperthyroidism: No Hypothyroidism: No Thyroid Cancer: No Parathyroid Disease: No Pituitary Disease: No Systemic Lupus Erythematosus: No Syndrome of Inappropriate Antidiuretic Hormone: No Adrenal Disease: No Graves' Disease: No Blood Problems Anemia: No Leukemia: No Hemophilia: No Thalassemia: No Sickle Cell Disease: No Clotting Problems: No Psychologic Problems Schizophrenia: No Recreational Drug Use: No Bipolar Disorder: No Depression: No Anxiety: No Behavior Problems: No Self-Mutilation: No Attention Deficit Disorder: No Attention Deficit Hyperactivity Disorder: No Depression: No Post Traumatic Stress Disorder: No Eating Disorder: No Other Problems Hospitalization: No Down Syndrome: No Autism: No Developmental Delay: No Cosmetic Surgery: No Shingles: No Falls: No Blood Transfusions: No Blood Transfusion Reaction: No Anesthesia Reactions: No Organ Transplant: No Chemotherapy: No Radiation Therapy: No Hyperbaric Therapy: No MRSA: No VRSA: No Vancomycin-Resistant Enterococci: No Human Immunodeficiency Virus (HIV): No Chicken Pox: Yes Measles: Yes Mumps: No Rubella (Khmer Measles): No Pertussis: No Klebsiella Pneumoniae Carbapenemase Producing Bacteria: No Clostridium Difficile: No Hepatitis A: No Hepatitis B: No Hepatitis C: No Communicable Disease: No Cancer: No Cervical Cancer: No Lung Cancer: No Ovarian Cancer: No Surgical History Angioplasty: No Appendectomy: No Bariatric Surgery: No Breast Surgery: No Cancer Surgery: No Carotid Endarterectomy: No Cholecystectomy: No Colectomy: No Colostomy: No Coronary Artery Bypass Graft: No Valve Replacement: No Herniorrhaphy: No Total Hip Replacement: No Total Knee Replacement: No Hysterectomy: Yes (partial hyst) Pacemaker: No Sinus Surgery: No Splenectomy: No TAHBSO-Total Abdominal Hysterectomy: No Thyroidectomy: No Ureter Stent: No Subjective Visit Visit for: follow up visit and knee Immunization / Flu Flu Vaccine in the Last 12 Months: Yes Flu Vaccine Exclusion Criteria: Already Received History of Present Illness Chief complaint: XRAY RESULTS Personal History Red flag PMH: none Pain Pain level (0-10): 5 Pain quality: dull and aching Ambulatory data Ambulatory device: none Treatments Improvement with previous injections: Yes Improvement with PT: Yes Improvement with NSAIDS: no Review of Systems Review of Systems: All systems negative unless otherwise noted in HPI.
== END 2025-04-05 11:44 | disposition home or self-care (01) ==
LOC: HODSRG 10:43
PROVIDERS: PCP Nurse Practitioner Family; Referring Provider Nurse Practitioner Family; Supervising Provider Orthopaedic Surgery Adult Reconstructive Orthopaedic Surgery; Visit Provider Orthopaedic Surgery Adult Reconstructive Orthopaedic Surgery
DX: M25.561 Pain in right knee (principal); M17.0 Bilateral primary osteoarthritis of knee; S82.001D Unspecified fracture of right patella, subsequent encounter for closed fracture with routine healing; W19.XXXD Unspecified fall, subsequent encounter; K74.60 Unspecified cirrhosis of liver
CPT/HCPCS: 20610; 99213; J1010; J2795; G0463